=== PATIENT | male | born 1970 ===

== ENCOUNTER 2018-10-21 23:04 | Emergency (ER) | payer OTHER ==
[~2018-10-21] VITALS: Ht 188 cm; Wt 106.6 kg
[2018-10-22] MEDS ORDERED: BACLOFEN 10 MG TAB PO ONE (00:30)
[2018-10-22] MEDS ORDERED: HYDROcodone-ACET 10/325MG TAB PO ONE (00:30)
[2018-10-22 01:10] VITALS: BP 134/87
== END 2018-10-22 02:21 | disposition home or self-care (01) ==
LOC: MERGE 23:07 → ER 23:07
DX: S86.112A Strain of other muscle(s) and tendon(s) of posterior muscle group at lower leg level, left leg, initial encounter (principal); R25.2 Cramp and spasm; X50.9XXA Other and unspecified overexertion or strenuous movements or postures, initial encounter; Y93.89 Activity, other specified; Y99.0 Civilian activity done for income or pay; Y92.89 Other specified places as the place of occurrence of the external cause